=== PATIENT | male | born 1950 | race Caucasian/White ===

== ENCOUNTER 2023-06-02 08:41 | Emergency (ER) | payer MEDICARE ==
[~2023-06-02] VITALS: Ht 182.9 cm; Wt 84.1 kg
[~2023-06-02 08:41] MED LIST: NORCO 325 MG-51 TAB PO
[2023-06-02 08:52] VITALS: TEMP 98.6
[2023-06-02] MEDS ORDERED: Ondansetron 4 MG/2 ML VIAL IV ONE (09:00)
[2023-06-02] MEDS ORDERED: LR 1,000 ML IV ONE (09:00)
[2023-06-02] MEDS ORDERED: Meclizine 25 MG TAB PO ONE (09:00)
[2023-06-02 09:03] LABS: BASO % 0.4 % (0.0-2.0); EOS # 0.1 K/mm3 (0.0-0.7); EOS % 1.4 % (0.0-4.0); GRAN # 5.6 K/mm3 (1.4-6.5); GRAN % 76.1 % (42.2-75.2); HEMATOCRIT 42.5 % (42.0-52.0); HEMOGLOBIN 13.9 g/dl (13.5-18.0); LYMPH # 1.1 K/mm3 (1.2-3.4); MEAN CELL VOLUME 88 fl (80.0-100.0); MEAN CORPUSCULAR HEMOGLOBIN 29 pg (27-31); MEAN CORPUSCULAR HGB CONC 33 g/dl (33.0-37.0); MEAN PLATELET VOLUME 10.8 fl (7.4-10.4); MONO # 0.4 K/mm3 (0.1-0.6); MONO % 5.7 % (1.7-9.3); PLATELET COUNT 153 K/mm3 (130-400); RED BLOOD COUNT 4.85 M/mm3 (4.20-5.60); REDCELL DISTRIBUTION WIDTH-CV 13.2 % (11.5-14.5)
[2023-06-02 09:16] LABS: BILIRUBIN,TOTAL 0.4 mg/dL (0.2-1.2); CALCIUM 9.2 mg/dL (8.4-10.2); CREATININE, serum 0.86 mg/dL (0.72-1.25); POTASSIUM 3.8 mmol/L (3.5-4.5)
[2023-06-02] MEDS ORDERED: LORazepam 2 MG/ML 1 ML VIAL IV ONE (10:00)
[2023-06-02 10:21] LABS: URINE APPEARANCE CLEAR (CLEAR/HAZY); URINE BLOOD NEGATIVE (NEGATIVE); URINE COLOR YELLOW (YELLOW); URINE GLUCOSE NEGATIVE (NEGATIVE); URINE KETONE NEGATIVE (NEGATIVE); URINE NITRATE NEGATIVE (NEGATIVE); URINE PROTEIN(semi-quant) NEGATIVE (NEGATIVE); URINE UROBILINOGEN 0.2 E.U/dL (0.2-1.0)
[2023-06-02 10:26] LABS: COLLECTION METHOD CLEAN CATCH
[2023-06-02] MEDS ORDERED: NS 100 ML IV SCH (11:13)
[2023-06-02] MEDS ORDERED: Iohexol 300 - 100 ML VIAL IV ONE (11:13)
[2023-06-02 13:44] VITALS: BP 140/87; PULSE 73
== END 2023-06-02 13:57 | disposition short-term general hospital (02) ==
LOC: COL.ER 08:41
PROVIDERS: Family Medicine
DX: H81.4 Vertigo of central origin (principal)
CPT/HCPCS: J2060; J7120; Q9967

== ENCOUNTER 2023-10-07 11:33 | Emergency (ER) | payer MEDICARE ==
[~2023-10-07] VITALS: Ht 182.9 cm; Wt 90.9 kg
[2023-10-07 11:35] VITALS: TEMP 98
[2023-10-07] MEDS ORDERED: NS 1,000 ML IV ONE (12:00)
[2023-10-07] MEDS ORDERED: Ondansetron 4 MG/2 ML VIAL IV ONE (12:00)
[2023-10-07] MEDS ORDERED: Meclizine 25 MG TAB PO ONE (12:00)
[2023-10-07 12:32] LABS: HEMATOCRIT 40.8 % (42.0-52.0); HEMOGLOBIN 13.6 g/dl (13.5-18.0); MEAN CELL VOLUME 84 fl (80.0-100.0); MEAN CORPUSCULAR HEMOGLOBIN 28 pg (27-31); MEAN CORPUSCULAR HGB CONC 33 g/dl (33.0-37.0); MEAN PLATELET VOLUME 10.7 fl (7.4-10.4); PLATELET COUNT 172 K/mm3 (130-400); RED BLOOD COUNT 4.87 M/mm3 (4.20-5.60); REDCELL DISTRIBUTION WIDTH-CV 13.3 % (11.5-14.5)
[2023-10-07 12:49] LABS: ALBUMIN 4.1 g/dL (3.4-4.8); BILIRUBIN,TOTAL 0.9 mg/dL (0.2-1.2); CALCIUM 8.9 mg/dL (8.4-10.2); CREATININE, serum 0.88 mg/dL (0.72-1.25); POTASSIUM 3.8 mEq/L (3.5-4.5); TOTAL PROTEIN 6.9 g/dl (6.2-8.1)
[2023-10-07 13:12] LABS: BASO % 0.5 % (0.0-2.0); EOS # 0.1 K/mm3 (0.0-0.7); EOS % 1.8 % (0.0-4.0); GRAN # 4.4 K/mm3 (1.4-6.5); GRAN % 77.2 % (42.2-75.2); LYMPH # 0.8 K/mm3 (1.2-3.4); LYMPH % 14.7 % (20.0-51.0); MONO # 0.3 K/mm3 (0.1-0.6); MONO % 5.3 % (1.7-9.3)
[2023-10-07 13:44] VITALS: BP 150/84; PULSE 64
== END 2023-10-07 14:24 | disposition home or self-care (01) ==
LOC: COL.ER 11:33
PROVIDERS: Physician Assistant
DX: R42 Dizziness and giddiness (principal); R11.2 Nausea with vomiting, unspecified
CPT/HCPCS: J2405; J7030